=== PATIENT | female | born 1970 | race Caucasian/White ===

== ENCOUNTER → 2018-05-09 | Outpatient (CLI) | END | disposition home or self-care (01) ==

== ENCOUNTER → 2018-09-09 | Outpatient (CLI) | payer BC ==
--- NOTE | 2018-09-09 14:50 | CONS ---
Consult Date/Type/Reason Admit Date/Time Initial Consult Date Date/Time of Note DATE: 09/09/18 TIME: 14:45 Subjective This is a 47-year-old female follows up today with known end-stage osteoarthritis of the right hip. At last visit we had a long discussion regarding her weight. Her BMI is greater than 50. We discussed the importance of losing weight and having a lower BMI before proceeding with the surgery. She was originally supposed to see a GI specialist for evaluation of gastric bypass. However that appointment got delayed until next month. She has tried to diet as well as being more active. However she has gained several pounds. Her symptoms are worse than her last visit otherwise they are unchanged in quality. She currently remains unemployed and her disability has now run out and she is feeling depressed. She is actively looking for another job. Objective Vitals Weight: 304 pounds Height: 5 foot 2 inches BMI: 55.6 Exam General: Awake, alert, in no acute distress, pleasant and cooperative Heart: regular rhythm Lungs: breathing comfortably, no tachypnea or dyspnea Musculoskeletal: Well developed morbidly obese female in no apparent distress. Gait demonstrates a Trendelenburg with antalgic components and short leg component. Bilateral knees in significant valgus. Standing, the pelvis is oblique and supine there is a true leg length discrepancy, with the right leg half cm short. Mild tenderness over trochanteric bursa or IT band. ----- Range of motion: Flexion: 70 Extension: 0 Internal rotation: 0 External rotation: 30 Abduction: 20 Adduction: -10 ----- Sitting there is no pelvic obliquity. Pain at the extremes of motion of the affected hip. Skin was intact throughout both lower extremities. Sensation intact to light touch in a sural, saphenous, deep peroneal, superficial peroneal, medial and lateral plantar nerve distribution. Neurovascular exam showed 5/5 strength in the abductors, quads, EHL/tibialis anterior/gastroc. Normal and symmetrical pulses were palpated in both the dorsalis pedis and posterior tibial arteries. There is no sign of venous stasis. Assessment/Plan Hospital Course (Demo Recall) 47-year-old morbidly obese female with end-stage osteoarthritis of the right hip . At this time her BMI is 55.6. She understands per our previous discussion that total hip arthroplasty at this time would be unsafe for her and would have poor outcomes. She is going to continue to work on weight loss and is meeting a GI surgeon next month. Plan: Weight loss Low impact activity, high aerobic activity Continue meloxicam Follow-up in 6 months for weight check LINDA MCKAY MD Sep 09, 2018 14:50
== END | disposition home or self-care (01) ==
LOC: HKI 13:58
PROVIDERS: ATTEND Orthopaedic Surgery Adult Reconstructive Orthopaedic Surgery
DX: M16.11 Unilateral primary osteoarthritis, right hip (principal); E66.01 Morbid (severe) obesity due to excess calories
CPT/HCPCS: G0463